=== PATIENT | female | born 1975 | race Caucasian/White ===

== ENCOUNTER 2016-10-25 18:57 | Emergency (ER) | payer OTHER ==
[~2016-10-25] VITALS: Ht 157.5 cm; Wt 103.4 kg
[2016-10-25 19:01] VITALS: BP 135/84
[2016-10-25] MEDS ORDERED: ALBUTEROL/IPRATROPIUM 2.5MG/0.5MG, 3 ML NPPB ONE (21:30)
[2016-10-25] MEDS ORDERED: ALBUTEROL/IPRATROPIUM 2.5MG/0.5MG, 3 ML ONE (21:44)
== END 2016-10-25 22:53 | disposition home or self-care (01) ==
LOC: ED 22:47
DX: J45.31 Mild persistent asthma with (acute) exacerbation (principal); J20.8 Acute bronchitis due to other specified organisms
CPT/HCPCS: 71020; 94640; 99284; J7512; J7620